=== PATIENT | female | born 1985 | race Caucasian/White ===

== ENCOUNTER 2021-10-04 13:24 | Emergency (ER) | payer OTHER, SELFPAY ==
[2021-10-04 13:42] VITALS: BP 122/76; PULSE 100; RESP 18; TEMP 36.8; O2SAT 98
--- NOTE | 2021-10-04 14:05 | ED.NAVMDI ---
HPI - Nausea/Vomiting/Diarrhea General Chief complaint: Nausea/Vomiting/Diarrhea Stated complaint: diarrhea Time Seen by Provider: 10/04/21 13:52 Source: patient and RN notes reviewed Mode of arrival: ambulatory Limitations: no limitations History of Present Illness HPI Narrative: Maria Esther is a 36-year-old female who ambulated into the [facility] today. Patient states she developed diarrhea on 09/28/2021. Patient had a Covid vaccine on 09/25/2021. Patient does take a probiotic daily. She started the probiotic 3 weeks ago. She had a migraine on Tuesday. Patient states today she is already had 10+ loose stools. Patient states the stools are not watery just extremely loose. Patient states they are normal brown color. Patient started taking Imodium yesterday and took 2 pills it did slow it minimally. Patient states she is drinking increased amounts of water. Patient denies any abdominal pain. Patient states she just has cramping with the bowel movements. Patient denies any fever. Related Data Allergies Allergy/AdvReac Type Severity Reaction Status Date / Time ciprofloxacin [From Cipro] Allergy Rash Verified 10/04/21 14:07 hydrocodone Allergy Rash Verified 10/04/21 14:07 Review of Systems Review of Systems: CONSTITUTIONAL: Denies body aches, fever, chills, or sweats. EYES: Denies visual changes, redness, or discharge. ENT: Denies rhinorrhea, congestion, sore throat, or otalgia. CARDIOVASCULAR: Denies chest pain, palpitations, or edema. RESPIRATORY: Denies cough or dyspnea. GASTROINTESTINAL: Denies abdominal pain, nausea, vomiting, + diarrhea. GENITOURINARY: Denies dysuria or hematuria. SKIN: Denies rash, itching, or wounds. MUSCULOSKELETAL: Denies back pain, joint pain, or myalgia. NEUROLOGIC: Denies headache, numbness, tingling, or weakness. PSYCH: Denies depression or anxiety. All systems reviewed & are unremarkable except as noted in HPI and below PMFSH Comments At time of signature, I have reviewed and agree with nursing past medical, surgical, social and family history unless otherwise noted. Please see nursing chart for further information. There is no relevant family history pertinent to the presenting complaint Exam Narrative: GENERAL: Well-appearing, well-nourished, and in no acute distress. HEAD: Normocephalic, atraumatic. EYES: EOMI. No redness or drainage. Conjunctivae normal. ENT: Mucous membranes pink and moist. Nares clear. No rhinorrhea. TM dull wth moderate bulging bilaterally, no erythema. Throat normal. Uvula midline. NECK: Normal AROM. Supple. No lymphadenopathy. ABDOMEN: Soft, nontender, nondistended, normal active bowel sounds. MUSCULOSKELETAL: No bony tenderness. EXTREMITIES: Normal range of motion. No edema. SKIN: Warm, dry, no rash. Capillary refill normal. Normal skin turgor. NEURO: No focal deficits. Alert and oriented x3. Gait steady. PSYCH: Normal affect. No signs of depression or anxiety. Course Vital Signs Vital signs: Vital Signs Temperature 36.8 C 10/04/21 13:42 Pulse Rate 100 10/04/21 13:42 Respiratory Rate 18 10/04/21 13:42 Blood Pressure 122/76 10/04/21 13:42 Pulse Oximetry 98 10/04/21 13:42 Temperature 36.8 C 10/04/21 13:42 Pulse Rate 100 10/04/21 13:42 Respiratory Rate 18 10/04/21 13:42 Blood Pressure 122/76 10/04/21 13:42 Pulse Oximetry 98 10/04/21 13:42 Reviewed MDM - Nausea/Vomiting/Diarrhea MDM Narrative Medical decision making narrative: Patient has had diarrhea 6 days. Patient has taken 2 doses of Imodium without relief. Patient has no abdominal pain, no fever, stools are light brown with some form. Differential Diagnosis Differential diagnosis: Likely traveler's diarrhea, gastroenteritis, clostridium difficile infection and dehydration Medical Records Attestation: I reviewed the patient's medical records. Critical Care Time Critical Care Time Critical Care Time: No Discharge Plan Discharge Clinical Imp
== END 2021-10-04 14:25 | disposition home or self-care (01) ==
PROVIDERS: Emergency Provider Nurse Practitioner Family; PCP Physician Assistant
DX: R19.7 Diarrhea, unspecified (principal)
CPT/HCPCS: 99213; G0463